=== PATIENT | female | born 1945 | race Caucasian/White ===

== ENCOUNTER 2018-03-14 08:30 | Day surgery (SDC) | payer MEDICARE, BC ==
[~2018-03-14 08:30] MED LIST: LIDOCAINE HCL 1% MPF 30 SOL ONE; PROPOFOL 500 MG/50 ML EMU IV ONE
[2018-03-14 10:12] VITALS: RESP 20
[2018-03-14 10:31] VITALS: BP 124/60; PULSE 67; TEMP 97.5; O2SAT 97
== END 2018-03-14 10:45 | disposition home or self-care (01) | DRG 951 ==
LOC: SURG 08:30
PROVIDERS: ATTEND Surgery
DX: Z12.11 Encounter for screening for malignant neoplasm of colon (principal); D12.2 Benign neoplasm of ascending colon; D12.0 Benign neoplasm of cecum; D12.8 Benign neoplasm of rectum
CPT/HCPCS: J2001; J2704